=== PATIENT | female | born 1965 ===

== ENCOUNTER → 2017-11-25 | Emergency (ER) | payer OTHER ==
[~2017-11-25] VITALS: Ht 162.6 cm; Wt 74.8 kg
[~2017-11-25] MED LIST: RELAGESIC 5001 EACH PO; SYNTHROID88 MCG
== END | disposition home or self-care (01) ==
LOC: ER 01:00
DX: S30.0XXA Contusion of lower back and pelvis, initial encounter (principal); W18.39XA Other fall on same level, initial encounter; Y93.89 Activity, other specified; Y92.89 Other specified places as the place of occurrence of the external cause; Y99.8 Other external cause status

== ENCOUNTER → 2018-02-24 | Emergency (ER) | payer OTHER ==
[~2018-02-24] VITALS: Ht 154.9 cm; Wt 79.4 kg
[~2018-02-24] MED LIST changes: +METOCLOPRAMIDE10 MG PO; +PEPCID40 MG PO; +PROTONIX40 MG PO
== END | disposition home or self-care (01) ==
LOC: ER 23:40
DX: K21.9 Gastro-esophageal reflux disease without esophagitis (principal); R07.89 Other chest pain

== ENCOUNTER 2018-04-27 00:06 | Emergency (ER) | payer OTHER ==
[~2018-04-27] VITALS: Ht 154.9 cm; Wt 80.7 kg
[2018-04-27] MEDS ORDERED: METOCLOPRAMIDE10 MG PO (04:38)
== END 2018-04-27 10:16 | disposition home or self-care (01) ==
LOC: ER 00:06
DX: H81.13 Benign paroxysmal vertigo, bilateral (principal)

== ENCOUNTER 2018-07-14 21:14 | Emergency (ER) | payer OTHER ==
[~2018-07-14] VITALS: Ht 154.9 cm; Wt 80.7 kg
[2018-07-15] MEDS ORDERED: NORFLEX100MG PO (01:37)
== END 2018-07-15 02:04 | disposition home or self-care (01) ==
LOC: ER 21:14
DX: M94.0 Chondrocostal junction syndrome [Tietze] (principal)

== ENCOUNTER 2018-11-02 19:44 | Emergency (ER) | payer OTHER ==
[~2018-11-02] VITALS: Ht 154.9 cm; Wt 76.2 kg
[~2018-11-02 19:44] MED LIST changes: +NORFLEX100MG PO
[2018-11-02] MEDS ORDERED: LOSARTAN POTASS25 MG (21:03)
== END 2018-11-02 22:51 | disposition home or self-care (01) ==
LOC: ER 19:44
DX: M54.5 Low back pain (principal)